=== PATIENT | male | born 1955 | race Caucasian/White ===

== ENCOUNTER → 2021-01-27 | Outpatient (CLI) | payer OTHER ==
[2021-01-27 10:07] LABS: HEMOGLOBIN 15.5 gm/dl (14.0-17.5); RED BLOOD COUNT 5.06 M/UL (4.20-5.50); WHITE BLOOD COUNT 6.4 K/UL (4.5-11.0)
== END ==
LOC: LAB 09:24
PROVIDERS: Family Medicine
DX: Z12.5 Encounter for screening for malignant neoplasm of prostate (principal); E78.5 Hyperlipidemia, unspecified; I10 Essential (primary) hypertension; E55.9 Vitamin D deficiency, unspecified; E78.1 Pure hyperglyceridemia; R74.8 Abnormal levels of other serum enzymes
CPT/HCPCS: 36415; 80053; 80061; 84439; 84443; 85027; G0103

== ENCOUNTER 2021-11-15 13:22 | Emergency (ER) | payer OTHER ==
[2021-11-15 14:52] LABS: HEMOGLOBIN 17.3 gm/dl (14.0-17.5); RED BLOOD COUNT 5.4 M/UL (4.20-5.50); WHITE BLOOD COUNT 11.2 K/UL (4.5-11.0)
[2021-11-15 15:16] LABS: BUN/CREATININE RATIO 26 (0-10)
[2021-11-15] MEDS ORDERED: HYDROCODON-ACE1 EAC4 PO (16:15)
[2021-11-15] MEDS ORDERED: CYCLOBENZAPRINE10 MG PO (16:15)
== END 2021-11-15 17:20 | disposition home or self-care (01) ==
LOC: ER1 13:22
PROVIDERS: Emergency Medicine
DX: M54.50 Low back pain, unspecified (principal); F17.200 Nicotine dependence, unspecified, uncomplicated
CPT/HCPCS: 80053; 85025; 85652; 86140; 96374; 96375; 99283; J2270; J2405